=== PATIENT | female | born 1970 | race Caucasian/White ===

== ENCOUNTER → 2024-01-05 09:41 | Outpatient (BNVA) | payer OTHER, SELFPAY | PROVIDERS: PCP Nurse Practitioner Family; Visit Provider Nurse Practitioner Family | DX: E11.9 Type 2 diabetes mellitus without complications (principal); I10 Essential (primary) hypertension; E78.5 Hyperlipidemia, unspecified | CPT/HCPCS: 80053; 80061; 83036; 84443; 85025 ==

== ENCOUNTER 2024-09-30 21:03 | Emergency (ER) | payer OTHER, SELFPAY ==
[2024-09-30 21:04] VITALS: BP 146/91; PULSE 81; RESP 16; TEMP 36.6; O2SAT 99; BMI 39.6
--- NOTE | 2024-09-30 21:06 | XRR_ITS ---
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 TECHNIQUE: Imaging protocol: Radiologic exam of the right wrist. Views: 3 or more views. COMPARISON: No relevant prior studies available. FINDINGS: Bones/joints: No fracture or dislocation is seen about the right wrist. No acute osseous abnormality. No abnormal soft tissue calcification is seen at the wrist joint. Soft tissues: No significant focal soft tissue abnormality. XR/XR wrist RT min 3V* [id number] IMPRESSION: No fracture or acute osseous abnormality.
--- NOTE | 2024-09-30 21:50 | XRR_ITS ---
PROCEDURE INFORMATION: Exam: XR Right Hand Exam date and time: 09/30/2024 9:53 PM Age: 53 years old Clinical indication: Pain; Hand; Right TECHNIQUE: Imaging protocol: Radiologic exam of the right hand. Views: 3 or more views. COMPARISON: CR (UP EXM, ) 09/30/2024 9:32 PM FINDINGS: Bones/joints: Normal mineralization and alignment. No evidence of acute fracture or dislocation. Mild scattered degenerative change. Soft tissues: The soft tissues are within normal limits. XR/XR hand RT min 3V* [id number] IMPRESSION: No evidence of acute fracture or dislocation.
[2024-09-30] MEDS: ketorolac 10 mg Tablet PO (21:57)
--- NOTE | 2024-09-30 22:03 | W.ED.EXTPRO ---
HPI - Extremity Problem General: Chief complaint: Extremity Injury, Upper Stated complaint: Right wrisk injury Time Seen by Provider: 09/30/24 21:29 History of Present Illness: Anabelle Aguilera is a 53-year-old female that presents to the emergency department with right wrist pain. Patient reports that she is right hand dominant. 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 She developed right wrist pain. She was referred to the emergency department for further evaluation for potential fracture She has no wounds. She is neurovascularly intact She has pain that radiates down the ulnar aspect of her wrist and hand and then into the third finger. Related Data Previous Rx's ?Medication ?Instructions ?Recorded amlodipine 10 mg tablet 10 mg PO DAILY #90 tabs 09/20/24 atorvastatin 40 mg tablet 40 mg PO DAILY #90 tabs 09/20/24 lisinopril 20 mg tablet 20 mg PO BID #180 tabs 09/20/24 metformin 500 mg tablet 500 mg PO BID #180 tabs 09/20/24 Allergies Allergy/AdvReac Type Severity Reaction Status Date / Time No Known Allergies Allergy Unverified 08/20/24 08:51 Review of Systems General: Reports: 10 or more systems reviewed and unremarkable except in HPI and below PFSH ED PFSH: Medical History Hyperlipidemia Essential hypertension Type 2 diabetes mellitus Social History Smoking and tobacco/nicotine status: current every day tobacco/nicotine user Second hand smoke exposure: Yes Alcohol intake: never Substance/Drug Use: never Adopted: No Caregiver/support person: No Lives independently: Yes Household members: none Housing: House Marital status: Number of children: 2 Highest education level completed: Some College, No Degree service: No Current occupational status: unemployed Physical Exam Narrative: EXAM NARRATIVE: No acute distress Alert and oriented x 3 Afebrile vital signs stable Nonlabored breathing Moving all extremities Right upper extremity: Skin is clean dry and intact No apparent edema but she is tender to palpation over the ulnar aspect of the wrist and hand. She is also tender in the right third digit when she flexes and extends it. She is able to flex and extend her wrist although it does elicit a pain response She is able to flex and extend the fingers although does elicit a pain response Patient has sensation intact throughout all nerve distributions of the right upper extremity. Cap refills less than 3 seconds Course Vital Signs: Vital signs: Vital Signs Temperature 97.9 F 09/30/24 21:04 Pulse Rate 81 09/30/24 21:04 Respiratory Rate 16 09/30/24 21:04 Blood Pressure 146/91 09/30/24 21:04 Pulse Oximetry 99 09/30/24 21:04 Oxygen Delivery Me thod Room Air 09/30/24 21:04 MDM - Extremity (Nontraumatic) Medical Decision Making Patient was evaluated in the emergency department today for complaints of right wrist pain. 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 Patient was sent here for further evaluation. She underwent XR imaging of the right wrist which revealed no acute fractures or dislocations. Patient also underwent XR of the right hand which was negative for fracture or dislocation. She was placed in a wrist splint. I have limited her activity until she is able to advance as tolerated. She needs to follow-up with her primary care doctor if she is not better in 5 to 7 days. She may need further evaluation with an orthopedic provider. Patient is agreeable and verbalizes understanding. All questions answered Lab Data Radiology Impressions Wrist X-Ray 09/30/24 21:06 IMPRESSION: No fracture or acute osseous abnormality. Hand X-Ray 09/30/24 21:50 IMPRESSION: No evidence of acute fracture or dislocation. All radiology interpretation(s) finalized by discharge Discharge Plan Discharge Patient Disposition: Home Clinical Impression: Sprain and strain of wrist Condition: Stable Prescriptions: No Action amlodipine 10 mg tablet 10 mg PO DAILY Qty: 90 1RF atorvastatin 40 mg tablet 40 mg PO DAILY Qty: 90 1RF lisinopril 20 mg tablet 20 mg PO BID Qty: 180 1RF Rx Instructions: Take 1 tablet twice daily. metformin 500 mg tablet 500 mg PO BID Qty: 180 1RF Discharge Orders: Discharge ED (Routine); Ordered 09/30/24 Ordered By: Db Manuel Referrals: June Gomez FNP-C [Primary Care Provider] - Discharge Diet: Advance as tolerated Discharge Activity: Increase activity as tolerated Patient Instructions: Pain Management, Sprains - Wrist Activity Restrictions/Additional Instructions: We responded to as needed for comfort. Ice and elevate. Use nonsteroidal anti-inflammatory drugs like ibuprofen naproxen or Aleve to help with swelling. Tylenol for pain. Stand Alone Forms: Work/School Release Print Language: Telugu Coding Level of Care Code ED Master Chef for [employer]
== END 2024-09-30 22:36 | disposition home or self-care (01) ==
PROVIDERS: Emergency Provider Nurse Practitioner; PCP Nurse Practitioner Family
DX: S63.501A Unspecified sprain of right wrist, initial encounter (principal); S66.911A Strain of unspecified muscle, fascia and tendon at wrist and hand level, right hand, initial encounter; Z79.84 Long term (current) use of oral hypoglycemic drugs; X58.XXXA Exposure to other specified factors, initial encounter
CPT/HCPCS: 73110; 73130; 99283

== ENCOUNTER → 2025-03-13 09:14 | Outpatient (BNVA) | payer OTHER, SELFPAY | PROVIDERS: PCP Nurse Practitioner Family; Visit Provider Nurse Practitioner Family | DX: I10 Essential (primary) hypertension (principal); E78.5 Hyperlipidemia, unspecified; E11.9 Type 2 diabetes mellitus without complications | CPT/HCPCS: 80053; 80061; 83036; 84443; 85025 ==